=== PATIENT | male | born 1995 | race Hispanic/Latino ===

== ENCOUNTER 2017-12-18 21:18 | Emergency (ER) | payer OTHER, SELFPAY ==
[2017-12-18] MEDS ORDERED: Ibuprofen 200 MG TAB ONE (21:52)
[2017-12-18] MEDS ORDERED: Diazepam 5 MG TAB ONE (21:52)
[2017-12-18] MEDS ORDERED: Acetaminophen 325 MG TAB ONE (21:52)
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
== END 2017-12-18 22:18 | disposition home or self-care (01) ==
LOC: ERS 21:18
DX: S39.012A Strain of muscle, fascia and tendon of lower back, initial encounter (principal); V89.2XXA Person injured in unspecified motor-vehicle accident, traffic, initial encounter
CPT/HCPCS: 72100

== ENCOUNTER 2019-09-20 23:53 | Emergency (ER) | payer OTHER, SELFPAY ==
[2019-09-21] MEDS ORDERED: Ondansetron PF 4 MG/2 ML Vial ONE (01:04)
[2019-09-21] MEDS ORDERED: Adacel (T-DAP) 0.5 ML SYRINGE ONE (02:58)
--- NOTE | 2019-09-21 10:54 | CT ---
PRELIMINARY REPORT/DIRECT RADIOLOGY/EMERGENCY AFTER HOURS PROCEDURE HISTORY: ER 10..., Laceration to L occipital region of scalp. 2 1 cm avulsions to back of head. CT CERVICAL SPINE TECHNIQUE: Multiplanar reformatted images provided. COMPARISON: None. LIMITATIONS: None. FRACTURES: None. ALIGNMENT: Normal. MINERALIZATION: Normal. VERTEBRA BODIES: Normal. DISC SPACES: Normal. POSTERIOR ELEMENTS: Normal. SPINAL CANAL: Normal. PARASPINAL SOFT TISSUES: Normal. OTHER: None. CONCLUSION: No acute cervical spine fracture. ELECTRONICALLY SIGNED BY: Felipa Henriquez M.D. Sep 21, 2019 12:48:50 AM CDT FINAL REPORT CT CERVICAL SPINE WITHOUT CONTRAST: I agree with the preliminary report provided. No acute fracture or subluxation demonstrated. POS:
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
== END 2019-09-21 03:19 | disposition home or self-care (01) ==
LOC: ERS 23:53
DX: S09.90XA Unspecified injury of head, initial encounter (principal); S01.01XA Laceration without foreign body of scalp, initial encounter; F10.129 Alcohol abuse with intoxication, unspecified; W18.39XA Other fall on same level, initial encounter; Y93.66 Activity, soccer
CPT/HCPCS: 12002; 36415; 36416; 70450; 72125; 80307; 90471; 90715; 96361; 96374; J2405

== ENCOUNTER 2024-10-24 11:47 | Emergency (ER) | payer SELFPAY ==
[2024-10-24] MEDS ORDERED: Ketorolac Tromethamine 30 MG (1 mL) VIAL ONE (12:11)
== END 2024-10-24 12:14 | disposition home or self-care (01) ==
LOC: ERS 11:47
DX: M54.41 Lumbago with sciatica, right side (principal)
CPT/HCPCS: 96372; 99283; J1885